=== PATIENT | male | born 1975 | race Caucasian/White ===

== ENCOUNTER 2020-02-06 08:58 | Outpatient (CLI) | payer OTHER ==
[2020-02-07 12:58] LABS: HEPATITIS B SURFACE ANTIGEN NON-REACTIVE (NON-REACTIVE); HEPATITIS C ANTIBODY NON-REACTIVE (NON-REACTIVE)
[2020-02-07 14:27] LABS: HIV AG/AB 4TH GEN NON-REACTIVE (NON-REACTIVE)
== END 2020-02-06 08:59 | disposition home or self-care (01) ==
LOC: LAB.S 08:58
PROVIDERS: ATTEND Obstetrics & Gynecology Reproductive Endocrinology
DX: Z11.59 Encounter for screening for other viral diseases (principal); Z11.3 Encounter for screening for infections with a predominantly sexual mode of transmission; Z11.4 Encounter for screening for human immunodeficiency virus [HIV]
CPT/HCPCS: 36415; 81599; 86592; 86803; 87340; 87389

== ENCOUNTER 2020-08-23 17:33 | Emergency (ER) | payer OTHER ==
[2020-08-23 17:59] VITALS: BP 138/77
[2020-08-23] MEDS ORDERED: LIDOCAINE 1%-EPI 1:100000 20 ML MDV SUBQ STA (18:21)
--- NOTE | 2020-08-23 18:22 | ED Physician Documentation ---
PD HPI WOUND RECHECK - Stated complaint Stated Complaint: ARMPIT PX - Chief complaint Chief Complaint: Wound - Histroy obtained from History obtained from: Patient - Additional information Additional information: About a 3-day history of painful lesion in the right axilla. Subjective fevers last night. Seen in urgent care and referred here for I&D of abscess. Review of Systems Constitutional: reports: Reviewed and negative Ears: reports: Reviewed and negative Nose: reports: Reviewed and negative Throat: reports: Reviewed and negative Cardiac: reports: Reviewed and negative Respiratory: reports: Reviewed and negative PD PAST MEDICAL HISTORY - Present Medications Home Medications: Ambulatory Orders Medication Instructions Recorded Confirmed clindamycin HCL [Cleocin HCl] 300 mg PO QID #28 cap 08/23/20 - Allergies Allergies/Adverse Reactions: Allergies Allergy/AdvReac Type Severity Reaction Status Date / Time No Known Drug Allergies Allergy Verified 08/23/20 17:57 PD ED PE NORMAL - Vitals Vital signs reviewed: Yes - General General: Alert and oriented X 3, No acute distress - HEENT HEENT: PERRL, EOMI - Neck Neck: Supple, no meningeal sign, No bony TTP - Cardiac Cardiac: RRR, No murmur - Respiratory Respiratory: No respiratory distress, Clear bilaterally - Abdomen Abdomen: Non tender - Extremities Extremities: Other (About a 3 x 4 cm abscess in the right axilla, the actual margins are a little hard to demarcate because of some local edema and cellulitis. Bedside ultrasound is slightly indeterminate because I think the contents are sebaceous mimicking normal subcutaneous tissue.) - Neuro Neuro: Alert and oriented X 3, Normal speech - Psych Psych: Normal mood, Normal affect Results - Vitals Vitals: Vital Signs - 24 hr 08/23/20 17:57 Temperature 36.8 C Heart Rate 84 Respiratory 16 Rate Blood Pressure 138/77 H O2 Saturation 97 Oxygen O2 Source Room air Procedures - Abscess I&D (location) R axila Preparation: Confirmed with ultrasound, Chlorhexadine, Lidocaine 1%, With epi Incision: Incised with scalpel, Purulent drainage, Loculations broken, Packed (with 1/2 inch packing), Culture obtained Other: Pt tolerated well, Dressing applied, Antibiotic prescribed Departure - Departure Disposition: 01 Home, Self Care Clinical Impression: Abscess Condition: Good Record reviewed to determine appropriate education?: Yes Instructions: ED Abscess IandD Prescriptions: clindamycin HCL [Cleocin HCl] 300 mg PO QID #28 cap Comments: Back to the walk-in clinic Monday for recheck, Packing removal and culture review. Return if worsening. We are performing a wound culture, the results should be done in 48-72 hours. If antibiotic change is necessary we will call you. Return if worse in the meantime, especially if you develop increased pain, fevers, cannot keep down the medication.
[2020-08-23] MEDS ORDERED: CLINDAMYCIN 150 MG CAPSULE PO STA (18:53)
== END 2020-08-23 19:01 | disposition home or self-care (01) ==
LOC: ED 17:33
DX: L02.411 Cutaneous abscess of right axilla (principal); L03.111 Cellulitis of right axilla
CPT/HCPCS: 10061; 87070; 87205; 99283; A9270; 87181

== ENCOUNTER 2020-11-06 10:38 | Outpatient (CLI) | payer OTHER ==
[2020-11-06 14:29] LABS: BASOPHILS # (AUTO) 0.1 10^3/uL (0.0-0.1); BASOPHILS % (AUTO) 0.9 %; EOSINOPHILS # (AUTO) 0.2 10^3/uL (0.0-0.7); EOSINOPHILS % (AUTO) 2.6 %; HCT - HEMATOCRIT 48.6 % (42.0-52.0); HGB - HEMOGLOBIN 15.8 g/dL (14.0-18.0); LYMPHOCYTES # (AUTO) 2.1 10^3/uL (1.5-3.5); MEAN CORPUSCULAR HEMOGLOBIN 30.1 pg (27.0-31.0); MEAN CORPUSCULAR HGB CONC 32.5 g/dL (32.0-36.0); MEAN CORPUSCULAR VOLUME 92.6 fL (80.0-94.0); MONOCYTES # (AUTO) 0.4 10^3/uL (0.0-1.0); MONOCYTES % (AUTO) 7.3 %; NEUTROPHILS # (AUTO) 3.1 10^3/uL (1.5-6.6); NEUTROPHILS % (AUTO) 52.3 %; PLT - PLATELET COUNT 290 10^3/uL (130-450); RED BLOOD COUNT 5.25 10^6/uL (4.70-6.10); RED CELL DISTRIBUTION WIDTH 12.6 % (12.0-15.0); WHITE BLOOD COUNT 5.9 x10^3/uL (4.8-10.8)
[2020-11-06 14:47] LABS: ALBUMIN 4.9 g/dL (3.2-5.5); ALBUMIN/GLOBULIN RATIO 1.8 (1.0-2.2); ALKALINE PHOSPHATASE 45 IU/L (42-121); ALT ALANINE AMINOTRANSFERASE 34 IU/L (10-60); AST ASPARTATE AMINOTRANSFERASE 24 IU/L (10-42); BILIRUBIN,TOTAL 0.9 mg/dL (0.2-1.0); BUN - BLOOD UREA NITROGEN 19 mg/dL (6-20); CALCIUM 9.4 mg/dL (8.5-10.3); CARBON DIOXIDE - CO2 25 mmol/L (21-32); CHLORIDE 104 mmol/L (101-111); CHOL/HDL RATIO 6.4 (<5.0); CHOLESTEROL 322 mg/dL; CREATININE 0.7 mg/dL (0.6-1.2); GFR - MDRD 123 (>89); GLUCOSE 105 mg/dL (70-100); HDL CHOLESTEROL 50 mg/dL; LDL CHOLESTEROL,CALCULATED 212 mg/dL; LDL/HDL RATIO 4.2 (<3.6); POTASSIUM 4.1 mmol/L (3.5-5.0); SODIUM 137 mmol/L (135-145); TOTAL PROTEIN 7.6 g/dL (6.7-8.2); TRIGLYCERIDES 298 mg/dL; VLDL CHOLESTEROL 60 mg/dL
[2020-11-06 14:58] LABS: THYROID STIMULATING HORMONE 2.26 uIU/mL (0.34-5.60)
== END 2020-11-06 10:39 | disposition home or self-care (01) ==
LOC: LAB.S 10:38
PROVIDERS: ATTEND Physician Assistant
DX: Z00.00 Encounter for general adult medical examination without abnormal findings (principal); R53.83 Other fatigue; R07.89 Other chest pain; Z13.29 Encounter for screening for other suspected endocrine disorder; Z13.0 Encounter for screening for diseases of the blood and blood-forming organs and certain disorders involving the immune mechanism; Z13.228 Encounter for screening for other metabolic disorders; J45.909 Unspecified asthma, uncomplicated; Z13.220 Encounter for screening for lipoid disorders
CPT/HCPCS: 36415; 80053; 80061; 82306; 83721; 84443; 85025